=== PATIENT | female | born 1960 | race Caucasian/White ===

== ENCOUNTER 2022-03-25 15:50 | Emergency (ER) | payer OTHER ==
[~2022-03-25] VITALS: Ht 157.5 cm; Wt 88.0 kg
[2022-03-25 16:09] VITALS: BP 151/84
[2022-03-25] MEDS ORDERED: IBUPROFEN 400MG TABLET PO ONE (21:00)
[2022-03-25] MEDS ORDERED: NAPR-681 MT (23:56)
== END 2022-03-26 00:36 | disposition home or self-care (01) ==
LOC: ER 15:50
DX: S63.591A Other specified sprain of right wrist, initial encounter (principal); W18.39XA Other fall on same level, initial encounter; Y93.89 Activity, other specified; Y92.89 Other specified places as the place of occurrence of the external cause; Y99.8 Other external cause status; E78.00 Pure hypercholesterolemia, unspecified; I10 Essential (primary) hypertension
CPT/HCPCS: 29125; 73030; 73090; 73110; 73130; 99284

== ENCOUNTER 2024-11-02 14:25 | Emergency (ER) | payer OTHER ==
[~2024-11-02] VITALS: Ht 157.5 cm; Wt 88.0 kg
[~2024-11-02 14:25] MED LIST: NAPR-681 MT
[2024-11-02 14:27] VITALS: O2SAT 100
[2024-11-02 14:30] VITALS: BP 185/111; PULSE 100; RESP 16; TEMP 36.7; O2SAT 100
[2024-11-02 15:09] LABS: BASOPHILS % 0.4 % (0.0-2.0); EOSINOPHILS % 2.6 % (0.0-5.0); HEMATOCRIT. 40.1 % (36.0-48.0); HEMOGLOBIN. 13.5 g/dL (12.0-16.0); LYMPHOCYTES % 42.4 % (20.0-50.0); MEAN CORPUSCULAR HEMOGLOBIN 30.6 pg (28.0-32.0); MEAN CORPUSCULAR HGB CONC 33.6 g/dL (31.0-37.0); MEAN CORPUSCULAR VOLUME 90.9 fL (81.0-99.0); MEAN PLATELET VOLUME 9.3 fl (7.4-10.4); MONOCYTES % 8.8 % (2.0-8.0); NEUTROPHILS % 45.8 % (40.0-76.0); PLATELET 226 x1000/uL (130-400); RED BLOOD CELL COUNT 4.41 mill/uL (4.2-5.4); RED CELL DISTRIBUTION WIDTH 14.3 % (11.6-14.6); WHITE BLOOD COUNT 6.4 x1000/uL (4.5-11.0)
[2024-11-02 15:16] LABS: CLARITY URINE CLEAR (CLEAR); COLOR URINE YELLOW (YELLOW); GLUCOSE URINE NEGATIVE (NEGATIVE); KETONES URINE NEGATIVE (NEGATIVE); LEUKOCYTE ESTERASE URINE 3+ (NEGATIVE); NITRITE URINE NEGATIVE (NEGATIVE); OCCULT BLOOD URINE NEGATIVE (NEGATIVE); PH URINE 7.5 (4.5-8.0); PROTEIN URINE NEGATIVE (NEGATIVE); SPECIFIC GRAVITY URINE 1.014 (1.005-1.030); UROBILINOGEN URINE 0.2 E.U./dL (0.2-1.0)
[2024-11-02 15:17] LABS: CARBON DIOXIDE 28 mEq/L (21-32); CHLORIDE 107 mEq/L (98-107); POTASSIUM 4.3 mEq/L (3.5-5.1); SODIUM 140 mEq/L (136-145)
[2024-11-02 15:18] LABS: CALCIUM 9.2 mg/dL (8.7-10.4)
[2024-11-02 15:22] LABS: CREATININE 0.8 mg/dL (0.6-1.0); GLUCOSE 91 mg/dL (70-105)
[2024-11-02 15:23] LABS: UREA NITROGEN BLOOD 16 mg/dL (9-23)
[2024-11-02 15:50] LABS: BACTERIA URINE TRACE; RBC URINE NONE SEEN /hpf (0-2); SQUAMOUS EPITHELIAL CELL URINE 1+ /lpf (RARE/1+)
[2024-11-02 15:51] LABS: RENAL EPITHELIAL CELLS URINE 1+ /lpf
[2024-11-02] MEDS ORDERED: CEPH500C2 MT (15:54)
[2024-11-02] MEDS: CEPHALEXIN 250MG CAPSULE PO NR (16:05)
== END 2024-11-02 16:12 | disposition home or self-care (01) ==
LOC: ER 14:25
DX: N39.0 Urinary tract infection, site not specified (principal); E78.00 Pure hypercholesterolemia, unspecified; I10 Essential (primary) hypertension; Z79.1 Long term (current) use of non-steroidal anti-inflammatories (NSAID)
CPT/HCPCS: 36415; 80048; 81003; 85025; 99283